=== PATIENT | male | born 1960 | race Caucasian/White ===

== ENCOUNTER 2025-08-13 20:54 | Emergency (ER) | payer OTHER, SELFPAY ==
[2025-08-13 20:57] VITALS: BP 180/109
--- NOTE | 2025-08-13 21:58 | ED.GENMED ---
History of Present Illness
General
Chief Complaint: Skin Surface Trauma
Source: patient
Time Seen by Provider: 08/13/25 21:50
History of Present Illness
History of Present Illness:
65-year-old male with past medical history of hypertension presenting to the ER for evaluation after he accidentally nicked a small spot on the left outer portion of his nose about an hour and a half prior to arrival and states has been bleeding
since that time. He has been applying pressure to the area but bleeding resumes. He notes this has happened from time to time but used to the bleeding is under control after a few minutes. He is not on any anticoagulant medication. He has no
other concerns at this time.
Past History
Past History
ED Past Medical History: HTN
ED Past Surgical History: None
Social History
Tobacco: Non-smoker
Alcohol: Chronic alcoholic
Drug: None
Personal:
Living: with family
Review of Systems
Review of Systems
All Other Systems: ROS reviewed and negative except as documented in HPI and ROS
Phy Exam
Physical Exam
Physical Exam:
GENERAL: Alert , in no apparent distress
EYE: conjunctiva clear
Head: Normocephalic atraumatic
NECK: Supple,
ENT: mmm. small lesion on left outer nose, erythematous, oozing blood, no arterial spurting, no epistaxis
LUNGS: no acute respiratory distress
NEUROLOGICAL: Alert and oriented
SKIN: Warm and dry, skin intact.
MUSCULOSKELETAL: well perfused.
PSYCH: Normal and appropriate interaction.
Scores
Heart Failure Risk
Heart Failure Risk Score: Not Applicable
Heart Score for Chest Pain Patients
STEMI patient?: Not applicable
Withdrawal Assessment of Alcohol
Withdrawal Assessment Completed?: Not applicable
Course
Orders/Labs/Results
Orders:
Orders
08/13/25 21:50
Tranexamic Acid 250 mg TOPICAL NOW STA
Vital Signs
Initial and Last Documented VS:
Initial Vital Signs
Temp Pulse Resp BP Pulse Ox
98.1 F 104 18 180/109 96
08/13/25 20:57 08/13/25 20:57 08/13/25 20:57 08/13/25 20:57 08/13/25 20:57
Last Documented Vital Signs
Temp Pulse Resp BP Pulse Ox
98.1 F 104 18 180/109 96
08/13/25 20:57 08/13/25 20:57 08/13/25 20:57 08/13/25 20:57 08/13/25 22:02
MDM/Problems Addressed
Differential Diagnosis Includes:
Basal Cell
Squamous Cell
Benign nevus
Cyst
Actinic Keratosis
Lichen Planus
MDM/Problems Addressed:
65-year-old male presenting to the ER for evaluation of a lesion on the left side of his nose that accidentally got nicked by his finger earlier today, has since been bleeding. Patient is not on any anticoagulant medication. Will attempt arm gauze
soaked in TXA with a nasal clamp overtop. If this does not achieve hemostasis, will consider suture.
*Pulse Oximetry
SaO2: 96
Oxygen Mode of Delivery: Room air
Patient hypoxic: no
*Critical Care Note
Total Time (30-74mins, 75-104mins- exclusive of procedures): Not Applicable
Patient Management
Escalation/DeEscalation of care consider admission/obs:
Bleeding was initially controlled with TXA however upon second inspection the lesion started oozing again so one 6-0 Monocryl suture placed with good hemostasis achieved. Patient will follow-up with dermatology about the skin lesion for potential
biopsy/removal. Aware of return precautions to the ER.
ED Attending Note
-
Portions of this chart may have been created with voice recognition software.� Occasional wrong word or��sound alike� substitutions may have occurred due to the inherent limitations of voice recognition software.
Discharge Plan
Departure
Patient Disposition: Home (Routine Discharge)
Date of Disposition: 08/13/25
Time of Disposition: 22:44
Patient with high blood pressure during this ER visit?: Yes
Discharge Problem:
External nasal lesion
Instructions: Skin lesion removal
Prescriptions:
No Action
lisinopril 20 MG tablet
20 mg PO DAILY
oxycodone-acetaminophen 5 MG/325 MG tablet
1 tab PO Q6HPRN PRN (Reason: pain) Qty: 12 0RF
Referrals:
UNKNOWN - PT DOES,NOT KNOW [Family Provider]
Interventions
Interventions:
*Risk Screen - Suicide Last Done: 08/13/25 20:57
*General Assessment Last Done: 08/13/25 20:57
*Neglect/Abuse Screening Last Done: 08/13/25 20:57
*ED- Fall Risk Assessment Last Done: 08/13/25 20:57
*ED COVID-19 Vaccine History Last Done: 08/13/25 20:57
*ED Influenza Vaccine History Last Done: 08/13/25 20:57
Discharge Date and Time
Print Language: FIJIAN
[2025-08-13] MEDS: TRANEXAMIC ACID 250 MG TOPICAL (22:27)
== END 2025-08-13 22:57 | disposition home or self-care (01) ==
LOC: EMR 20:54
PROVIDERS: EMERGENCY PHYSICIAN Emergency Medicine
DX: L98.9 Disorder of the skin and subcutaneous tissue, unspecified (principal); I10 Essential (primary) hypertension
CPT/HCPCS: 99282